=== PATIENT | female | born 2000 | race Caucasian/White ===

== ENCOUNTER 2023-06-07 15:37 | Outpatient (CLI) | payer BC, SELFPAY | END 2023-06-07 15:38 | disposition home or self-care (01) | LOC: NFLDREF 06-09 12:23 | PROVIDERS: Visit Provider Physician Assistant | DX: R30.0 Dysuria (principal); N39.0 Urinary tract infection, site not specified | CPT/HCPCS: 87086; 87186 ==

== ENCOUNTER 2023-06-09 02:51 | Emergency (ER) | payer BC, SELFPAY ==
[2023-06-09 03:03] VITALS: BP 98/62; PULSE 89; RESP 20; TEMP 36.3; O2SAT 98
--- NOTE | 2023-06-09 03:12 | CRLHL7_ITS ---
For Patients: As a result of the Century Cures Act, medical imaging exams and procedure reports are released immediately into your electronic medical record. You may view this report before your referring provider. If you have questions, please contact your health care provider. INDICATION: Right flank pain. Right lower quadrant pain. TECHNIQUE: CT abdomen and pelvis acquired with 74 cc Isovue 370 IV contrast. COMPARISON: None. FINDINGS: Lower chest: Unremarkable. Liver: Unremarkable. Normal in size and attenuation. No suspicious masses. Gallbladder and bile ducts: Unremarkable. No stones or inflammation. No biliary dilatation. Pancreas: Unremarkable. No mass or inflammation. Spleen: Unremarkable. Normal in size. No masses. Adrenal glands: Unremarkable. No nodules. Kidneys: Right upper pole 5.3 cm cystic mass with multiple (4 or more) smooth thin enhancing septa. No solid enhancing elements. Six-month follow-up renal mass protocol CT is recommended. GI tract: Moderate nonspecific colonic fecal burden. Normal bowel caliber. No sign of mass or inflammation. Normal appendix. Vasculature: Abdominal aorta is normal in caliber. Mesenteric arteries are patent. Lymph nodes: No lymphadenopathy. Peritoneum/Abdominal Wall: Reticular fat stranding of the omentum in the right iliac fossa is consistent with an omental infarct. Pelvis: A T-shaped IUD is present within the central uterus. Uterus and ovaries otherwise unremarkable. Bones: Unremarkable for age. IMPRESSION: 1. Right lower quadrant omental infarct. 2. Normal appendix. 3. Right upper pole cystic renal mass with multiple thin enhancing internal septations. 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 When malignant, nearly all are indolent. Generally, these lesions are followed by imaging in 6 and 12 months and then annually. Six-month follow-up renal mass protocol CT is recommended. 4. Incidental findings described above. Please note that all CT scans at this facility use dose modulation, iterative reconstruction, and/or weight-based dosing when appropriate to reduce radiation dose to as low as reasonably achievable. Dictated by Rohit Perla MD @ 06/09/2023 4:34:59 AM (Electronically Signed)
--- NOTE | 2023-06-09 03:13 | ED.GENADULT ---
HPI - General Adult General Date Seen: 06/09/23 Chief complaint: Back Injury/Pain Stated complaint: Lower back pain-right side Time Seen by Provider: 06/09/23 02:58 Source: patient Mode of arrival: ambulatory Limitations: no limitations History of Present Illness HPI narrative: Patient is a 22-year-old female with no pertinent medical problems presenting to emergency department for right low back and right lower quadrant/pelvic pain. She states the symptoms started last night and have been getting worse. She states she was diagnosed with the UTI 2 days ago at urgent care and was started on nitrofurantoin. She has had no previous abdominal surgeries. Denies ever having symptoms like this before. She is feeling nauseated. She has been able eat and drink recurrent he says he thinks he is dehydrated. Has had subjective fevers but has not checked her temperature at all. No recent heavy lifting or injuries that she is aware of. States the pain is a 6/10. Took 2 ibuprofen without improvement in symptoms. Related Data Previous Rx's Medication Instructions Recorded nitrofurantoin 100 mg PO Q12H 5 days #10 caps 06/07/23 monohydrate/macrocrystals 100 mg capsule (Macrobid) Allergies Allergy/AdvReac Type Severity Reaction Status Date / Time amoxicillin Allergy Unknown Verified 06/07/23 16:29 Penicillins Allergy Unknown Verified 06/07/23 16:29 Review of Systems Status of ROS: Reports: 10 or more systems reviewed and unremarkable except as noted in History and below Exam Narrative: Exam Narrative: Const: Well-nourished, Well-developed, in moderate distress Eyes: PERRL, no conjunctival injection, and symmetrical lids HENT: Atraumatic external nose and ears. Moist mucous membranes. Neck: Symmetric, trachea midline, No thyromegaly. CVS: RRR, No murmurs or gallops. Peripheral pulses 2+ and equal in all extremities RESP: Unlabored respiratory effort. Clear to auscultation bilaterally. GI: Nontender/Nondistended, No rebound or guarding. Mild right lower quadrant tenderness MSK:Extremities w/o deformity, Normal Active ROM. Right low back tenderness Skin: Warm, Dry. No rashes or lesions. Neuro: Normal Muscle tone, No focal neurological deficits. Psych: Awake, Alert, & Oriented x3. Appropriate mood and affect. Const: Vital Signs, click to edit/add: Vital Signs - 24 hr 06/09/23 03:03 Temperature 97.4 F L Pulse Rate [Left P ulse Oximeter] 89 Respiratory Rate 20 Blood Pressure [Ri ght Upper Arm] 98/62 Pulse Oximetry 98 Oxygen Delivery Me thod Room Air Course Vital Signs Vital signs: Initial Vital Signs Temperature 97.4 F L 06/09/23 03:03 Temperature Source Temporal Artery Scan 06/09/23 03:03 Pulse Rate 89 06/09/23 03:03 Pulse Rhythm Regular 06/09/23 03:03 Respiratory Rate 20 06/09/23 03:03 Blood Pressure 98/62 06/09/23 03:03 Blood Pressure Mean 74 06/09/23 03:03 Blood Pressure Position Sitting 06/09/23 03:03 Pulse Oximetry 98 06/09/23 03:03 Oxygen Delivery Method Room Air 06/09/23 03:03 Vital Signs Temperature 97.4 F L 06/09/23 03:03 Pulse Rate 89 06/09/23 03:03 Respiratory Rate 20 06/09/23 03:03 Blood Pressure 98/62 06/09/23 03:03 Pulse Oximetry 98 06/09/23 03:03 Oxygen Delivery Method Room Air 06/09/23 03:03 Temperature 97.4 F L 06/09/23 03:03 Pulse Rate 89 06/09/23 03:03 Respiratory Rate 20 06/09/23 03:03 Blood Pressure 98/62 06/09/23 03:03 Pulse Oximetry 98 06/09/23 03:03 Oxygen Delivery Method Room Air 06/09/23 03:03 Medications Administered Medications: Generic Name Dose Route Start Last Admin Trade Name Freq PRN Reason Stop Dose Admin Morphine Sulfate 4 mg 06/09/23 03:41 06/09/23 03:57 Morphine 4 Mg/Ml Inj IVP 06/09/23 03:42 4 mg ONCE ONE Administration Discontinued Medications Generic Name Dose Route Start Last Admin Trade Name Freq PRN Reason Stop Dose Admin Lactated Ringer's 1,000 mls @ 1,000 mls/hr 06/09/23 03:11 06/09/23 03:33 Lactated Ringers 1000 Ml IV 06/09/23 04:10 1,000 mls/hr .Q1H ONE Administration Ketorolac Tromethamine 15 mg 06/09/23 03:11 06/09/23 03:33 Ketorolac 15 Mg/Ml Inj IVP 06/09/23 03:12 15 mg ONCE ONE Administration Ondansetron HCl 4 mg 06/09/23 03:11 06/09/23 03:33 Ondansetron 2 Mg/Ml Inj IVP 06/09/23 03:12 4 mg ONCE ONE Administration Medical Decision Making MDM Narrative Medical decision making narrative: Patient is 22-year-old female presenting for right flank and right lower quadrant pain. Symptoms started yesterday morning have been worsening. She has been diagnosed with the UTI at urgent care a couple days ago. She does appear to be uncomfortable at this time. Will give her Toradol for pain and Zofran for nausea. There is concerns of appendicitis 1st as a worsening urinary tract infection versus infected kidney stone. Seems unlikely to be all musculoskeletal related. We will do CT scans IV contrast to better evaluate this. We also ordered CBC, CMP, urinalysis. Patient also given a L of lactated Ringer's. Toradol on the dog have her symptoms so I gave him morphine. After that she is feeling better and pain is now under control. Lab work returns shows slightly elevated white blood cell count of 13. Rest of CBC and CMP showed no concerning findings. Nose is does show signs of early UTI which she is already on antibiotics for now not believe further treatment is needed. The CT scan returned showing a omental infarct. Normal appendix. I spoke to Dr. Conley about this and she recommends outpatient treatment pain medication. I spoke to the patient about this issue prescribed oxycodone and Zofran through [facility]. She is not have a primary care provider in the area but she can see our [facility] providers on Wednesday. I informed to return to the emergency department and pain is unbearable. I told it would take Tylenol or ibuprofen 1st and if that is not helping oxycodone as a backup. Patient is agreeable to this plan. Lab Data Labs: Lab Results 06/09/23 06/09/23 Range/Units 03:29 04:27 WBC 13.11 H (4.50-11.00) K/uL RBC 4.29 (4.00-5.20) m/uL Hgb 12.5 (12.0-16.0) gm/dL Hct 37.8 (33.0-51.0) % MCV 88 (80-100) fL MCH 29 (26-34) pg MCHC 33 (32-36) gm/dL RDW Coeff of Juan A 12.5 (11.5-15.5) % Plt Count 211 (140-440) K/uL Neut % (Auto) 84.9 H (42.0-72.0) % Lymph % (Auto) 5.9 L (20-44) % [place] % (Auto) 8.8 (0.0-11.0) % Eos % (Auto) 0.1 (0.0-7.0) % Baso % (Auto) 0.1 (0.0-3.0) % Neut # (Auto) 11.10 H (1.7-7.0) K/uL Lymph # (Auto) 0.80 L (0.90-2.90) K/uL [place] # (Auto) 1.20 H (0.00-0.90) K/UL Eos # (Auto) 0.00 (0.00-0.50) K/uL Baso # (Auto) 0.00 (0.00-0.30) K/uL Abs Immat Gran (auto) 0.00 (0.00-0.30) K/uL Imm/Tot Granulo (auto) 0.2 % Sodium 140 (135-149) mmol/L Potassium 3.9 (3.6-5.1) mmol/L Chloride 106 (96-114) mmol/L Carbon Dioxide 25 (20-32) mmol/L Anion Gap 9 (7-15) mEq/L BUN 12 (5-24) mg/dL Creatinine 0.8 (0.5-1.5) mg/dL Estimated GFR 108 ml/min Glucose 131 H (60-115) mg/dL Calcium 9.6 (8.4-10.6) mg/dL Total Bilirubin 0.8 (0.1-1.5) mg/dL AST 23 (12-35) U/L ALT 17 (4-35) U/L Alkaline Phosphatase 87 (40-150) U/L Total Protein 7.6 (6.0-8.3) g/dL Albumin 4.8 (3.3-5.0) g/dL Urine Color Yellow (Yellow) Urine Appearance Clear (Clear) Urine pH 7.5 (5.0-8.5) Ur Specific [place] 1.015 (1.000-1.030) Urine Protein 1+ A (Negative) Urine Glucose (UA) Negative (Negative) Urine Ketones 3+ A (Negative) Urine Blood Trace-intact A (Negative) Urine Nitrite Negative (Negative) Urine Bilirubin Negative (Negative) Urine Urobilinogen 0.2 (0.2-1.0) Ur Leukocyte Esterase Trace A (Negative) Urine RBC 0-2 (0-2) Urine WBC 2-5 (0-5) Ur Squamous Epith Cells Moderate A (None-Few) Urine Bacteria Moderate A (None) Urine HCG, Qual Negative (Negative) Imaging Data CT scan abdomen pelvis: Radiologist's impression: 1. Right lower quadrant omental infarct. 2. Normal appendix. 3. Right upper pole cystic renal mass with multiple thin enhancing internal septations. 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 When malignant, nearly all are indolent. Generally, these lesions are followed by imaging in 6 and 12 months and then annually. Six-month follow-up renal mass protocol CT is recommended. 4. Incidental findings described above. Please note that all CT scans at this facility use dose modulation, iterative reconstruction, and/or weight-based dosing when appropriate to reduce radiation dose to as low as reasonably achievable. Dictated by Rohit Perla MD @ 06/09/2023 4:34:59 AM Discharge Plan Discharge Clinical Impression: Omental infarction Patient Disposition: Home, Self-Care Condition: Stable Instructions: Abdominal Pain (ED) Additional Instructions: Take ibuprofen Tylenol for pain 1st and if that is not helping use the oxycodone as a backup. You can start off with half a pill. Return to the emergency department if pain becomes unbearable. Follow-up with your primary care provider or [facility]. Prescriptions: No Action nitrofurantoin monohyd/m-cryst [Macrobid] 100 mg capsule 100 mg PO Q12H 5 Days Qty: 10 0RF Rx Instructions: must administer with a meal/food Follow Up/Referrals: Provider,Not a Local [Primary Care Provider] - Stand Alone Forms: [employer] Info Instructions
[2023-06-09] MEDS: LACTATED RINGERS 1000 ML 1,000 ML IV (03:33)
[2023-06-09] MEDS: ONDANSETRON 2 MG/ML inj 4 MG IVP (03:33)
[2023-06-09] MEDS: KETOROLAC 15 MG/ML inj IVP (03:33)
[2023-06-09 03:34] LABS: Basophils Percent Auto 0.1 % (0.0-3.0); Eosinophils Percent Auto 0.1 % (0.0-7.0); Hematocrit 37.8 % (33.0-51.0); Hemoglobin* 12.5 gm/dL (12.0-16.0); Immature Granulocytes Pct Auto 0.2 %; Lymphocytes Percent Auto 5.9 % (20-44); Mean Corpuscular HGB Conc 33 gm/dL (32-36); Mean Corpuscular Hemoglobin 29 pg (26-34); Mean Corpuscular Volume 88 fL (80-100); Monocytes Percent Auto 8.8 % (0.0-11.0); Neutrophils Percent Auto 84.9 % (42.0-72.0); Platelet Count* 211 K/uL (140-440); RDW Coefficient of Variation % 12.5 % (11.5-15.5); Red Blood Count 4.29 m/uL (4.00-5.20); White Blood Count* 13.11 K/uL (4.50-11.00)
[2023-06-09 03:38] LABS: Slide Review Reflex No
[2023-06-09 03:46] LABS: Albumin* 4.8 g/dL (3.3-5.0); Chloride* 106 mmol/L (96-114)
[2023-06-09 03:47] LABS: Potassium* 3.9 mmol/L (3.6-5.1); Sodium* 140 mmol/L (135-149)
[2023-06-09 03:49] LABS: Anion Gap 9 mEq/L (7-15); Aspartate Amino Transferase* 23 U/L (12-35); Bilirubin Total* 0.8 mg/dL (0.1-1.5); Carbon Dioxide* 25 mmol/L (20-32); Total Protein* 7.6 g/dL (6.0-8.3)
[2023-06-09 03:50] LABS: Alanine Aminotransferase* 17 U/L (4-35); Alkaline Phosphatase* 87 U/L (40-150); Blood Urea Nitrogen* 12 mg/dL (5-24); Calcium* 9.6 mg/dL (8.4-10.6); Glucose* 131 mg/dL (60-115)
[2023-06-09 03:52] LABS: Creatinine* 0.8 mg/dL (0.5-1.5); Estimated Glomerular Filt Rate 108 ml/min
[2023-06-09] MEDS: MORPHINE 4 MG/ML INJ IVP (03:57)
[2023-06-09 04:31] LABS: Appearance Urine Clear (Clear); Bilirubin Urine Negative (Negative); Blood Urine Trace-intact (Negative); Color Urine Yellow (Yellow); Glucose Urine Negative (Negative); Ketones Urine 3+ (Negative); Leukocyte Esterase Urine Trace (Negative); Nitrite Urine Negative (Negative); Protein Urine 1+ (Negative); Specific Gravity Urine 1.015 (1.000-1.030); Urobilinogen Urine 0.2 (0.2-1.0); pH Urine 7.5 (5.0-8.5)
[2023-06-09 04:38] LABS: Bacteria Urine Moderate; RBC Urine 0-2 (0-2); Squamous Epithelial Cell Urine Moderate (None-Few); Ur HCG Qualitative* Negative (Negative)
[2023-06-09 05:03] VITALS: BP 106/82; PULSE 76; RESP 18; O2SAT 99
== END 2023-06-09 05:10 | disposition home or self-care (01) ==
PROVIDERS: Emergency Provider Student in an Organized Health Care Education/Training Program
DX: N39.0 Urinary tract infection, site not specified (principal)
CPT/HCPCS: 36415; 74177; 80053; 81001; 81025; 85025; 87086; 96374; 96375; 99283; 99284; 99285; J1885; J2270; J2405; J7120; Q9967

== ENCOUNTER 2024-09-11 20:07 | Emergency (ER) | payer BC, SELFPAY ==
[2024-09-11 20:10] VITALS: BP 115/74; PULSE 58; RESP 16; TEMP 36; O2SAT 100; BMI 25.8
--- NOTE | 2024-09-11 20:13 | ED_ITS ---
HPI - General Adult General Time Seen by Provider: 20:13 Date Seen: 09/11/24 Chief complaint: Ear/Nose/Throat Problem Stated complaint: Earring backing is stuck in earring hole Time Seen by Provider: 09/11/24 20:13 Source: patient, RN notes reviewed and old records reviewed Mode of arrival: ambulatory Limitations: no limitations History of Present Illness HPI narrative: 23-year-old female who comes in today with earring backing stuck in the right ear. She was unable to get this out at home so came to the emergency room. No other concerns. Related Data Home Medications ?Medication ?Instructions ?Recorded ?Confirmed No Known Home Medications 09/11/24 09/11/24 Allergies Allergy/AdvReac Type Severity Reaction Status Date / Time amoxicillin Allergy Unknown Verified 09/11/24 20:13 Penicillins Allergy Unknown Verified 09/11/24 20:13 [facility] Social History Non-prescribed substance use: denies use Exam Narrative: Exam Narrative: General: well nourished , NAD Head: Atraumatic and normocephalic ENT: Multiple appears seen in the ears bilaterally. In the right earlobe, there is a stud earring with packing imbedded in the ear lobe. Eyes: Conjunctiva clear, pupils are equal reactive, external ocular motions are intact Neck: Full spontaneous range of motion of the neck Lungs: No respiratory distress Musculoskeletal: No tenderness or deformity Neurologic: No gross focal neurologic deficits Skin: No rashes Psych: Mood and affect are appropriate Const: Vital Signs, click to edit/add: Vital Signs - 24 hr 09/11/24 20:10 Temperature 96.8 F L Pulse Rate [Pulse Oximeter] 58 L Respiratory Rate 16 Blood Pressure [Ri ght Upper Arm] 115/74 Pulse Oximetry 100 Oxygen Delivery Me thod Room Air Course Course ED Course: Reviewed most recent prior visit from June 2023 when patient was seen with omental infarction, symptom management. Patient presents today with foreign body in the right ear lobe. The backing of the earring is stuck in the earlobe, still on the stem. Risks and benefits were discussed with the patient, lidocaine 1% with epinephrine 1 mL injected on the posterior and anterior lobe adjacent to the earring. The earring was removed and it was revealed that the stem is slightly bent. The backing still imbedded in the ear lobe. This was grasped with a curved mosquito clamp and removed through the anterior hole with gentle traction. No additional incision was needed. Hemostasis obtained and patient tolerated the procedure well. Vital Signs Vital signs: Initial Vital Signs Temperature 96.8 F L 09/11/24 20:10 Temperature Source Temporal Artery Scan 09/11/24 20:10 Pulse Rate 58 L 09/11/24 20:10 Respiratory Rate 16 09/11/24 20:10 Blood Pressure 115/74 09/11/24 20:10 Blood Pressure Mean 87 09/11/24 20:10 Blood Pressure Position Sitting 09/11/24 20:10 Pulse Oximetry 100 09/11/24 20:10 Oxygen Delivery Method Room Air 09/11/24 20:10 Vital Signs Temperature 96.8 F L 09/11/24 20:10 Pulse Rate 58 L 09/11/24 20:10 Respiratory Rate 16 09/11/24 20:10 Blood Pressure 115/74 09/11/24 20:10 Pulse Oximetry 100 09/11/24 20:10 Oxygen Delivery Method Room Air 09/11/24 20:10 Temperature 96.8 F L 09/11/24 20:10 Pulse Rate 58 L 09/11/24 20:10 Respiratory Rate 16 09/11/24 20:10 Blood Pressure 115/74 09/11/24 20:10 Pulse Oximetry 100 09/11/24 20:10 Oxygen Delivery Method Room Air 09/11/24 20:10 Discharge Plan Discharge Clinical Impression: Acute foreign body of right earlobe Patient Disposition: Home, Self-Care Condition: Stable Instructions: Soft Tissue Foreign Body (ED) Additional Instructions: Leave initial dressing on for 12-24 hours. After that wash the area gently. Do not use the piercing for at least 1 week Activity Level: No Restrictions Discharge Diet: Regular Prescriptions: No Action No Known Home Medications Follow Up/Referrals: Provider,Not a Local [Primary Care Provider] - Stand Alone Forms: [employer] Info Instructions
== END 2024-09-11 21:22 | disposition home or self-care (01) ==
LOC: ED 20:52
PROVIDERS: Emergency Provider Family Medicine
DX: S00.451A Superficial foreign body of right ear, initial encounter (principal)
CPT/HCPCS: 99282; 99283; 99284